=== PATIENT | female | born 1990 | race African-American/Black ===

== ENCOUNTER 2024-07-07 09:17 | Emergency (ER) | payer OTHER ==
[2024-07-07 09:31] VITALS: BP 100/72; PULSE 90; RESP 18; TEMP 98.1; BMI 22.8
[2024-07-07] MEDS ORDERED: DEXAMETHASONE SOD PHOSPHATE 10 MG/1 ML VIAL ONE (10:36)
[2024-07-07] MEDS: ALBUTEROL SO4 2.5/IPRATROPIUM 0.5 INH SOL 3 ML VIAL.NEB. NEB SCH (10:40)
[2024-07-07] MEDS: DEXAMETHASONE SOD PHOSPHATE 10 MG/1 ML VIAL IM ONE (10:41)
== END 2024-07-07 13:35 | disposition home or self-care (01) ==
LOC: JER 09:17 → JERFT 09:17
PROC: 3E023GC Introduction of Other Therapeutic Substance into Muscle, Percutaneous Approach (ICD-10-PCS; principal; 2024-07-07)
PROC: 3E0F7GC Introduction of Other Therapeutic Substance into Respiratory Tract, Via Natural or Artificial Opening (ICD-10-PCS; 2024-07-07)
DX: J45.901 Unspecified asthma with (acute) exacerbation (principal); J06.9 Acute upper respiratory infection, unspecified; R53.1 Weakness; R06.02 Shortness of breath; R07.89 Other chest pain; Z20.822 Contact with and (suspected) exposure to COVID-19
CPT/HCPCS: 0241U-QW; 99284-25; J1100

== ENCOUNTER 2025-03-22 18:51 | Emergency (ER) | payer OTHER ==
[2025-03-22 19:02] VITALS: BP 102/62; PULSE 65; RESP 18; TEMP 98.3; BMI 24.3
[2025-03-22] MEDS ORDERED: BACITRACIN ZINC 15 GM TUBE TOPICAL OINTMENT ONE (19:17)
[2025-03-22] MEDS ORDERED: DIPHTH,PERTUSS(ACELL),TET 0.5 ML DISP.SYRIN IM ONE (19:23)
[2025-03-22] MEDS ORDERED: IBUPROFEN 600 MG TABLET (FP) PO ONE (19:24)
[2025-03-22] MEDS: BACITRACIN ZINC 15 GM TUBE TOPICAL OINTMENT TP ONE (19:28)
[2025-03-22] MEDS: DIPHTH,PERTUSS(ACELL),TET 0.5 ML DISP.SYRIN IM ONE (19:29)
[2025-03-22] MEDS: IBUPROFEN 600 MG TABLET (FP) PO ONE (19:30)
== END 2025-03-22 19:49 | disposition home or self-care (01) ==
LOC: JERFT 18:51
PROC: 3E0234Z Introduction of Serum, Toxoid and Vaccine into Muscle, Percutaneous Approach (ICD-10-PCS; principal; 2025-03-22)
DX: S61.201A Unspecified open wound of left index finger without damage to nail, initial encounter (principal); Z23 Encounter for immunization; W26.0XXA Contact with knife, initial encounter; Y92.009 Unspecified place in unspecified non-institutional (private) residence as the place of occurrence of the external cause; Y93.G1 Activity, food preparation and clean up
CPT/HCPCS: 90471; 90715; 99284-25